=== PATIENT | female | born 1975 | race Caucasian/White ===

== ENCOUNTER 2021-12-20 22:00 | Emergency (ER) | payer BC ==
[~2021-12-20] VITALS: Ht 162.6 cm; Wt 54.4 kg
--- NOTE | 2021-12-20 22:18 | NUR ---
pt in room 2 b states has right elbow pain. Dr. Vieyra at bedside for MSE.
[2021-12-20] MEDS ORDERED: LIDOCAINE HCL 1% 20 ML VIAL ONE (22:24)
[2021-12-20] MEDS: LIDOCAINE HCL 1% 20 ML VIAL IJ ONE (22:32)
[2021-12-20] MEDS ORDERED: LIDOCAINE 1%-EPI 1:100,000 20 ML VIAL ONE (22:34)
--- NOTE | 2021-12-20 22:40 | NUR ---
Dr. Vieyra at bedside for procedure.
[2021-12-20 23:16] LABS: *URINE HCG, QUAL NEGATIVE (NEGATIVE)
[2021-12-20] MEDS ORDERED: IBUP-1955 PO (23:18)
[2021-12-20] MEDS ORDERED: SULF1TAB48 PO (23:18)
[2021-12-20] MEDS ORDERED: IBUPROFEN 600 MG TABLET ONE (23:21)
[2021-12-20] MEDS ORDERED: SULFAMETH/TRIMETH 800/160 MG TABLET ONE (23:21)
[2021-12-20] MEDS: SULFAMETH/TRIMETH 800/160 MG TABLET PO ONE (23:24)
[2021-12-20] MEDS: IBUPROFEN 600 MG TABLET PO ONE (23:24)
--- NOTE | 2021-12-20 23:37 | NUR ---
Patient discharged to home in stable condition. Written and verbal after care instructions given. Patient verbalizes understanding of instructions. Stressed follow up or return to ER for worsening s/s.
[2021-12-20 23:38] VITALS: BP 120/80
== END 2021-12-20 23:39 | disposition home or self-care (01) ==
LOC: ER 22:04
DX: S59.901A Unspecified injury of right elbow, initial encounter (principal); M70.21 Olecranon bursitis, right elbow; W18.30XA Fall on same level, unspecified, initial encounter; Y92.039 Unspecified place in apartment as the place of occurrence of the external cause; L03.113 Cellulitis of right upper limb
CPT/HCPCS: 20605; 36415; 73080; 83986; 84703; 87070; 87205; 99284; J3490; 87077